=== PATIENT | male | born 1995 ===

== ENCOUNTER 2023-01-31 09:52 | Emergency (ER) | payer MEDICAID ==
[~2023-01-31] VITALS: Ht 172.7 cm; Wt 75.0 kg
[2023-01-31 09:57] VITALS: TEMP 97.5
[2023-01-31] MEDS ORDERED: Ketorolac 30 MG/ML VIAL IV ONE (10:30)
[2023-01-31] MEDS ORDERED: Ketorolac 30 MG/ML VIAL IM ONE (10:30)
[2023-01-31] MEDS ORDERED: FLEXERIL 1010 MG/TAB PO (10:39)
[2023-01-31 11:15] VITALS: BP 115/67; PULSE 62
[2023-02-17] MEDS ORDERED: MEDROL 4MG DOSPA4 MG PO (13:18)
== END 2023-01-31 11:16 | disposition home or self-care (01) ==
LOC: COL.ER 09:52
DX: M54.2 Cervicalgia (principal); F17.200 Nicotine dependence, unspecified, uncomplicated
CPT/HCPCS: J1885; J2360